=== PATIENT | female | born 1965 | race Caucasian/White ===

== ENCOUNTER 2021-11-06 05:15 | Inpatient (IN) | payer MEDICARE, MEDICAID ==
[2021-11-06] MEDS ORDERED: Celecoxib 200 MG Cap PO ONE (05:45)
[2021-11-06] MEDS ORDERED: Acetaminophen 500 MG Tab PO ONE (05:45)
[2021-11-06] MEDS ORDERED: Scopolamine 1.5 MG Transdermal Patch TOP SCH (05:45)
[2021-11-06] MEDS ORDERED: Dextrose 5%-Lactated Ringers 1,000 ML IV SCH ×2 (06:30→11:15)
[2021-11-06] MEDS ORDERED: Albuterol/Ipratropium 3.0-0.5 MG/3 ML Neb Soln NEB ONE (06:30)
[2021-11-06] MEDS ORDERED: Meropenem 500 MG SDV ONE (06:42)
[2021-11-06] MEDS ORDERED: Lidocaine 1% with EPINEPHrine 1:100,000 50 ML MDV ONE (06:42)
[2021-11-06] MEDS ORDERED: Bupivacaine 0.5% 50 ML MDV ONE (06:42)
[2021-11-06] MEDS ORDERED: Succinylcholine 200 MG/10 ML MDV ONE (06:52)
[2021-11-06] MEDS ORDERED: Dexamethasone 4 MG/ML SDV ONE (06:52)
[2021-11-06] MEDS ORDERED: Ondansetron 4 MG/2 ML SDV ONE (06:52)
[2021-11-06] MEDS ORDERED: Neostigmine Methylsulfate 1 MG/ML 5 ML Syringe ONE (06:52)
[2021-11-06] MEDS ORDERED: Propofol 200 MG/20 ML SDV ONE (06:52)
[2021-11-06] MEDS ORDERED: Rocuronium 50 MG/5 ML Vial ONE (06:52)
[2021-11-06] MEDS ORDERED: Glycopyrrolate 0.2 MG/ML 5 ML MDV ONE (06:52)
[2021-11-06] MEDS ORDERED: fentaNYL 250 MCG/5 ML SDV ONE ×2 (06:53→07:33)
[2021-11-06] MEDS ORDERED: cefOXitin 2 GM in Sodium Chloride 0.9% 50 ML IV ONE (07:15)
[2021-11-06] MEDS ORDERED: Ketamine 16 MG in Sodium Chloride 0.9% 19.84 ML IV SCH (07:30)
[2021-11-06] MEDS ORDERED: Ketamine 500 MG/5 ML MDV IV SCH (07:30)
[2021-11-06] MEDS ORDERED: Ondansetron 4 MG/2 ML SDV IVPUSH PRN ×2 (08:23→12:00)
[2021-11-06] MEDS ORDERED: diphenhydrAMINE 50 MG/ML SDV IVPUSH PRN ×2 (08:23→12:00)
[2021-11-06] MEDS ORDERED: Naloxone 0.4 MG/ML SDV IVPUSH PRN (08:23)
[2021-11-06] MEDS ORDERED: diphenhydrAMINE 25 MG Cap PO PRN (08:23)
[2021-11-06] MEDS: HYDROmorphone/Normal Saline 6 MG/30 ML PCA Vial IV PRN ×2 (08:32→17:55)
[2021-11-06] MEDS ORDERED: 50% Dextrose in Water 50 ML Syringe IVPUSH PRN (09:19)
[2021-11-06] MEDS ORDERED: Glucagon,Human Recombinant 1 MG Vial IM PRN ×2 (09:19→12:00)
[2021-11-06] MEDS ORDERED: Ondansetron 4 MG/2 ML SDV IVPUSH ONE (09:26)
[2021-11-06] MEDS ORDERED: Insulin Lispro 100 Unit/ML 3 ML KwikPen SUBCUT ONE (09:30)
[2021-11-06] MEDS ORDERED: Metoclopramide 10 MG/2 ML SDV IVPUSH ONE (10:00)
[2021-11-06] MEDS ORDERED: Naloxone 0.4 MG/ML SDV IV PRN (10:00)
[2021-11-06] MEDS ORDERED: Cyclobenzaprine 10 MG Tab PO PRN (11:04)
[2021-11-06] MEDS ORDERED: Lactated Ringers 1,000 ML IV SCH (11:30)
[2021-11-06] MEDS ORDERED: Albuterol/Ipratropium 3.0-0.5 MG/3 ML Neb Soln INH PRN (12:00)
[2021-11-06] MEDS ORDERED: Labetalol 20 MG/4 ML Syringe IVPUSH PRN (12:00)
[2021-11-06] MEDS ORDERED: Metoclopramide 10 MG/2 ML SDV IVPUSH PRN (12:00)
[2021-11-06] MEDS ORDERED: Acetaminophen 500 MG Tab PO PRN (12:00)
[2021-11-06] MEDS: cefOXitin 2 GM in Sodium Chloride 0.9% 50 ML IV SCH ×2 (13:15→20:01)
[2021-11-06] MEDS: Pantoprazole 40 MG Vial IVPUSH SCH (13:15)
[2021-11-06] MEDS: Acetaminophen 500 MG Tab PO SCH ×2 (13:16→21:24)
[2021-11-06] MEDS: hydrOXYzine HCL 100 MG/2 ML SDV IM PRN (13:35)
[2021-11-06] MEDS: Albuterol/Ipratropium 3.0-0.5 MG/3 ML Neb Soln INH SCH ×2 (14:20→21:18)
[2021-11-06] MEDS ORDERED: Tranexamic Acid 1,000 MG in Sodium Chloride 0.9% 50 ML IV ONE ×2 (15:30→18:30)
[2021-11-06] MEDS: Insulin Lispro 100 Unit/ML 3 ML KwikPen SUBCUT SCH ×2 (16:56→22:08)
[2021-11-06] MEDS: MVI, Adult with Vitamin K 10 ML, Thiamine 200 MG, Zinc/Copper/Manganese/Selenium 1 ML i... IV SCH ×4 (17:01)
[2021-11-06] MEDS: metFORMIN 500 MG Tab PO SCH (17:07)
[2021-11-06] MEDS: Heparin Sodium 5,000 Units/ML Vial SUBCUT SCH (20:15)
[2021-11-06] MEDS: Oxybutynin 5 MG Tab PO SCH (21:22)
[2021-11-06] MEDS: Venlafaxine 75 MG Tab PO SCH (21:22)
[2021-11-06] MEDS: Montelukast 10 MG Tab PO SCH (21:23)
[2021-11-06] MEDS: Morphine 15 MG Tab.ER PO SCH (21:27)
[2021-11-06] MEDS ORDERED: Gabapentin 400 MG Cap ONE ×2 (21:38→21:40)
[2021-11-06] MEDS: Gabapentin 400 MG Cap PO SCH (21:53)
[2021-11-07] MEDS: cefOXitin 2 GM in Sodium Chloride 0.9% 50 ML IV SCH ×4 (01:32→19:43)
[2021-11-07] MEDS ORDERED: Iopamidol 612 MG/ML 50 ML SDV PO STA (04:19)
[2021-11-07] MEDS: Insulin Lispro 100 Unit/ML 3 ML KwikPen SUBCUT SCH ×4 (04:23→21:17)
[2021-11-07] MEDS: Acetaminophen 500 MG Tab PO SCH ×3 (05:16→21:11)
[2021-11-07] MEDS: Albuterol/Ipratropium 3.0-0.5 MG/3 ML Neb Soln INH SCH ×4 (07:06→21:10)
[2021-11-07] MEDS ORDERED: Ondansetron 4 MG Tab.DIS PO PRN (07:20)
[2021-11-07] MEDS ORDERED: Dextrose 5%-Lactated Ringers 1,000 ML IV SCH (07:30)
[2021-11-07] MEDS: Heparin Sodium 5,000 Units/ML Vial SUBCUT SCH (08:47)
[2021-11-07] MEDS: Celecoxib 200 MG Cap PO SCH ×2 (08:47→21:10)
[2021-11-07] MEDS: metFORMIN 500 MG Tab PO SCH ×3 (08:47→16:13)
[2021-11-07] MEDS: Hydrochlorothiazide 25 MG Tab PO SCH (08:48)
[2021-11-07] MEDS: PARoxetine 20 MG Tab PO SCH (08:48)
[2021-11-07] MEDS: Docusate Sodium 100 MG Cap PO SCH (08:48)
[2021-11-07] MEDS: Oxybutynin 5 MG Tab PO SCH ×2 (08:49→21:11)
[2021-11-07] MEDS: atorvaSTATin 10 MG Tab PO SCH (08:49)
[2021-11-07] MEDS: Losartan 50 MG Tab PO SCH (08:50)
[2021-11-07] MEDS: Gabapentin 400 MG Cap PO SCH ×2 (08:50→21:10)
[2021-11-07] MEDS: Venlafaxine 75 MG Tab PO SCH ×2 (08:55→21:10)
[2021-11-07] MEDS: buPROPion 150 MG Tab.ER PO SCH (08:55)
[2021-11-07] MEDS: Lactated Ringers 1,000 ML IV SCH (09:00)
[2021-11-07] MEDS ORDERED: Empagliflozin 10 MG Tab PO SCH (09:00)
[2021-11-07] MEDS ORDERED: Venlafaxine 75 MG Tab PO SCH (09:00)
[2021-11-07] MEDS: Morphine 15 MG Tab.ER PO SCH ×2 (09:06→21:10)
[2021-11-07] MEDS: Sennosides 8.6 MG Tab PO SCH (09:08)
[2021-11-07] MEDS: SCOPOLAMINE PATCH CHECK TOP SCH (09:08)
[2021-11-07] MEDS: Pantoprazole 40 MG Vial IVPUSH SCH (12:04)
[2021-11-07] MEDS: hydrOXYzine HCL 100 MG/2 ML SDV IM PRN (12:07)
[2021-11-07] MEDS ORDERED: Coagulation Factor VIIa Recombinant (per MCG) 2 MG Vial IVPUSH ONE (15:00)
[2021-11-07] MEDS ORDERED: Tranexamic Acid 1,000 MG in Sodium Chloride 0.9% 50 ML IV ONE ×2 (15:00→18:00)
[2021-11-07] MEDS: MVI, Adult with Vitamin K 10 ML, Thiamine 200 MG, Zinc/Copper/Manganese/Selenium 1 ML i... IV SCH ×4 (17:37)
[2021-11-07] MEDS: ALPRAZolam 0.5 MG Tab PO PRN (18:00)
[2021-11-07] MEDS: Montelukast 10 MG Tab PO SCH (21:11)
[2021-11-08] MEDS: ALPRAZolam 0.5 MG Tab PO PRN ×2 (02:51→20:26)
[2021-11-08] MEDS: Insulin Lispro 100 Unit/ML 3 ML KwikPen SUBCUT SCH ×4 (05:01→22:09)
[2021-11-08] MEDS: Lactated Ringers 1,000 ML IV SCH (05:11)
[2021-11-08 05:20] LABS: ESTIMATED GFR > 60 (>60)
[2021-11-08] MEDS: Acetaminophen 500 MG Tab PO SCH ×3 (05:40→22:11)
[2021-11-08] MEDS: Albuterol/Ipratropium 3.0-0.5 MG/3 ML Neb Soln INH SCH ×4 (07:12→20:17)
[2021-11-08] MEDS: HYDROmorphone/Normal Saline 6 MG/30 ML PCA Vial IV PRN (07:27)
[2021-11-08] MEDS: metFORMIN 500 MG Tab PO SCH ×3 (07:29→16:20)
[2021-11-08] MEDS ORDERED: Coagulation Factor VIIa Recombinant (per MCG) 2 MG Vial IVPUSH ONE (08:00)
[2021-11-08] MEDS: Oxybutynin 5 MG Tab PO SCH ×2 (08:38→20:19)
[2021-11-08] MEDS: Docusate Sodium 100 MG Cap PO SCH ×2 (08:39→20:18)
[2021-11-08] MEDS: Gabapentin 400 MG Cap PO SCH ×3 (08:39→20:19)
[2021-11-08] MEDS: Hydrochlorothiazide 25 MG Tab PO SCH (08:39)
[2021-11-08] MEDS: Bisacodyl 5 MG Tab PO SCH ×2 (08:40→20:18)
[2021-11-08] MEDS: buPROPion 150 MG Tab.ER PO SCH (08:41)
[2021-11-08] MEDS: PARoxetine 20 MG Tab PO SCH (08:41)
[2021-11-08] MEDS: atorvaSTATin 10 MG Tab PO SCH (08:42)
[2021-11-08] MEDS: Celecoxib 200 MG Cap PO SCH ×2 (08:42→20:18)
[2021-11-08] MEDS: Losartan 50 MG Tab PO SCH (08:42)
[2021-11-08] MEDS: Venlafaxine 75 MG Tab PO SCH ×2 (08:43→20:18)
[2021-11-08] MEDS: SCOPOLAMINE PATCH CHECK TOP SCH (08:43)
[2021-11-08] MEDS: Sennosides 8.6 MG Tab PO SCH (08:43)
[2021-11-08] MEDS: Morphine 15 MG Tab.ER PO SCH ×2 (08:49→20:17)
[2021-11-08] MEDS ORDERED: Docusate Sodium 100 MG Cap PO SCH (09:00)
[2021-11-08] MEDS ORDERED: Cyanocobalamin (Vitamin B12) 1,000 MCG/ML SDV IM ONE (09:00)
[2021-11-08] MEDS: Pantoprazole 40 MG Delayed-Release Granules 1 Packet PO SCH (12:11)
[2021-11-08] MEDS: MVI, Adult with Vitamin K 10 ML, Thiamine 200 MG, Zinc/Copper/Manganese/Selenium 1 ML i... IV SCH ×4 (15:04)
[2021-11-08] MEDS: Montelukast 10 MG Tab PO SCH (20:19)
[2021-11-09] MEDS: ALPRAZolam 0.5 MG Tab PO PRN ×3 (03:45→20:28)
[2021-11-09] MEDS: Insulin Lispro 100 Unit/ML 3 ML KwikPen SUBCUT SCH ×4 (04:15→22:00)
[2021-11-09 05:08] LABS: ESTIMATED GFR > 60 (>60)
[2021-11-09] MEDS: Acetaminophen 500 MG Tab PO SCH ×3 (05:36→22:00)
[2021-11-09] MEDS: Albuterol/Ipratropium 3.0-0.5 MG/3 ML Neb Soln INH SCH ×4 (07:26→20:29)
[2021-11-09] MEDS ORDERED: Magnesium Hydroxide 400 MG/5 ML Susp 30 ML Cup PO PRN (07:26)
[2021-11-09] MEDS: metFORMIN 500 MG Tab PO SCH ×2 (08:23→17:44)
[2021-11-09] MEDS: Bisacodyl 5 MG Tab PO SCH ×2 (08:24→20:21)
[2021-11-09] MEDS: Venlafaxine 75 MG Tab PO SCH ×2 (08:24→20:22)
[2021-11-09] MEDS: Losartan 50 MG Tab PO SCH (08:24)
[2021-11-09] MEDS: Docusate Sodium 100 MG Cap PO SCH ×2 (08:24→20:21)
[2021-11-09] MEDS: Celecoxib 200 MG Cap PO SCH ×2 (08:24→20:20)
[2021-11-09] MEDS: Polyethylene Glycol 3350 Powder 17 GM Packet PO SCH (08:25)
[2021-11-09] MEDS: atorvaSTATin 10 MG Tab PO SCH (08:25)
[2021-11-09] MEDS: Hydrochlorothiazide 25 MG Tab PO SCH (08:25)
[2021-11-09] MEDS: Morphine 15 MG Tab.ER PO SCH ×2 (08:25→20:28)
[2021-11-09] MEDS: Oxybutynin 5 MG Tab PO SCH ×2 (08:26→20:23)
[2021-11-09] MEDS: PARoxetine 20 MG Tab PO SCH (08:26)
[2021-11-09] MEDS: Gabapentin 400 MG Cap PO SCH ×3 (08:26→20:23)
[2021-11-09] MEDS: buPROPion 150 MG Tab.ER PO SCH (08:27)
[2021-11-09] MEDS: Sennosides 8.6 MG Tab PO SCH (08:27)
[2021-11-09] MEDS: Pantoprazole 40 MG Delayed-Release Granules 1 Packet PO SCH (11:36)
[2021-11-09] MEDS: oxyCODONE 5 MG Tab PO PRN (11:36)
[2021-11-09] MEDS: Montelukast 10 MG Tab PO SCH (20:23)
[2021-11-10] MEDS: Lactated Ringers 1,000 ML IV SCH (00:51)
[2021-11-10] MEDS: oxyCODONE 5 MG Tab PO PRN ×3 (02:29→18:03)
[2021-11-10] MEDS: ALPRAZolam 0.5 MG Tab PO PRN ×2 (02:30→21:07)
[2021-11-10] MEDS: Insulin Lispro 100 Unit/ML 3 ML KwikPen SUBCUT SCH ×4 (05:18→21:16)
[2021-11-10 05:25] LABS: ESTIMATED GFR > 60 (>60)
[2021-11-10] MEDS: Albuterol/Ipratropium 3.0-0.5 MG/3 ML Neb Soln INH SCH ×4 (07:17→21:09)
[2021-11-10] MEDS: Gabapentin 400 MG Cap PO SCH ×3 (09:14→21:07)
[2021-11-10] MEDS: buPROPion 150 MG Tab.ER PO SCH (09:15)
[2021-11-10] MEDS: Venlafaxine 75 MG Tab PO SCH ×2 (09:15→21:09)
[2021-11-10] MEDS: metFORMIN 500 MG Tab PO SCH ×2 (09:15→17:27)
[2021-11-10] MEDS: atorvaSTATin 10 MG Tab PO SCH (09:15)
[2021-11-10] MEDS: Polyethylene Glycol 3350 Powder 17 GM Packet PO SCH (09:15)
[2021-11-10] MEDS: Docusate Sodium 100 MG Cap PO SCH ×2 (09:15→21:09)
[2021-11-10] MEDS: Acetaminophen 500 MG Tab PO SCH ×3 (09:16→21:08)
[2021-11-10] MEDS: Bisacodyl 5 MG Tab PO SCH ×2 (09:16→21:09)
[2021-11-10] MEDS: Celecoxib 200 MG Cap PO SCH ×2 (09:16→21:10)
[2021-11-10] MEDS: Morphine 15 MG Tab.ER PO SCH ×2 (09:16→21:15)
[2021-11-10] MEDS: Hydrochlorothiazide 25 MG Tab PO SCH (09:16)
[2021-11-10] MEDS: Losartan 50 MG Tab PO SCH (09:17)
[2021-11-10] MEDS: PARoxetine 20 MG Tab PO SCH (09:17)
[2021-11-10] MEDS: Oxybutynin 5 MG Tab PO SCH ×2 (09:17→21:10)
[2021-11-10] MEDS: Sennosides 8.6 MG Tab PO SCH (09:17)
[2021-11-10] MEDS: Pantoprazole 40 MG Delayed-Release Granules 1 Packet PO SCH (12:26)
[2021-11-10] MEDS: Montelukast 10 MG Tab PO SCH (21:10)
[2021-11-11] MEDS: oxyCODONE 5 MG Tab PO PRN ×2 (01:48→10:52)
[2021-11-11] MEDS: ALPRAZolam 0.5 MG Tab PO PRN (03:44)
[2021-11-11] MEDS: Insulin Lispro 100 Unit/ML 3 ML KwikPen SUBCUT SCH ×2 (04:57→10:38)
[2021-11-11 05:19] LABS: ESTIMATED GFR > 60 (>60)
[2021-11-11] MEDS: Acetaminophen 500 MG Tab PO SCH (06:03)
[2021-11-11] MEDS: Albuterol/Ipratropium 3.0-0.5 MG/3 ML Neb Soln INH SCH ×2 (07:30→10:38)
[2021-11-11] MEDS ORDERED: Cyanocobalamin (Vitamin B12) 1,000 MCG/ML SDV IM ONE (08:00)
[2021-11-11] MEDS ORDERED: Magnesium Sulfate/Water 2 GM in Premix Bag 1 BAG IV ONE (08:00)
[2021-11-11] MEDS: buPROPion 150 MG Tab.ER PO SCH (08:48)
[2021-11-11] MEDS: PARoxetine 20 MG Tab PO SCH (08:48)
[2021-11-11] MEDS: Gabapentin 400 MG Cap PO SCH (08:48)
[2021-11-11] MEDS: Celecoxib 200 MG Cap PO SCH (08:49)
[2021-11-11] MEDS: atorvaSTATin 10 MG Tab PO SCH (08:49)
[2021-11-11] MEDS: Venlafaxine 75 MG Tab PO SCH (08:49)
[2021-11-11] MEDS: Polyethylene Glycol 3350 Powder 17 GM Packet PO SCH (08:49)
[2021-11-11] MEDS: Bisacodyl 5 MG Tab PO SCH (08:49)
[2021-11-11] MEDS: Hydrochlorothiazide 25 MG Tab PO SCH (08:49)
[2021-11-11] MEDS: Morphine 15 MG Tab.ER PO SCH (08:49)
[2021-11-11] MEDS: metFORMIN 500 MG Tab PO SCH (08:50)
[2021-11-11] MEDS: Sennosides 8.6 MG Tab PO SCH (08:50)
[2021-11-11] MEDS: Docusate Sodium 100 MG Cap PO SCH (08:50)
[2021-11-11] MEDS: Oxybutynin 5 MG Tab PO SCH (08:50)
[2021-11-11] MEDS: Losartan 50 MG Tab PO SCH (08:51)
[2021-11-11] MEDS: Pantoprazole 40 MG Delayed-Release Granules 1 Packet PO SCH (12:13)
== END 2021-11-11 13:05 | disposition home or self-care (01) | DRG 326 ==
LOC: JP.SDS 05:31 → EDSTATUS 07:15 → JP.MS 10:39
PROVIDERS: ADMIT Surgery; ATTEND Surgery
PROC: 0DQ60ZZ Repair Stomach, Open Approach (ICD-10-PCS; principal; 2021-11-06)
PROC: 0FB20ZZ Excision of Left Lobe Liver, Open Approach (ICD-10-PCS; 2021-11-06)
PROC: 06Q Lower Veins, Repair (ICD-10-PCS; 2021-11-06)
PROC: 0WQF0ZZ Repair Abdominal Wall, Open Approach (ICD-10-PCS; 2021-11-06)
DX: K91.89 Other postprocedural complications and disorders of digestive system (principal); S35.1 Injury of inferior vena cava; K31.6 Fistula of stomach and duodenum; K43.0 Incisional hernia with obstruction, without gangrene; K66.0 Peritoneal adhesions (postprocedural) (postinfection); J45.909 Unspecified asthma, uncomplicated; E78.5 Hyperlipidemia, unspecified; Z90.49 Acquired absence of other specified parts of digestive tract; Z88.0 Allergy status to penicillin; Z91.040 Latex allergy status
CPT/HCPCS: 36415; 36430; 51701; 51798; 74240; 74240-26; 80053; 82728; 82947; 83735; 83880; 84100; 85018; 85027; 86850; 86900; 86901; 86920; 86922; 88302; 88307; 88313; 88342; 94640; A9270-GY; C9113; J0171; J0330; J0694; J1100; J1170; J1644; J1815; J1815-GY; J2020; J2185; J2405; J2704; J2710; J2765; J2795; J3010; J3410; J3411; J3420; J3475; J3490; J7120; J7121; J7189; J7620; P9016; Q9967